=== PATIENT | male | born 1975 | race Caucasian/White ===

== ENCOUNTER 2024-03-25 06:05 | Day surgery (SDC) | payer BC ==
[2024-03-20 16:14] VITALS: BMI 30.8
[2024-03-20 17:18] LABS: #Basophils 0.04 10x3/uL (0.0-0.2); #Eosinphils 0.22 10x3/uL (0.0-0.5); #Monocytes 0.68 10x3/uL (0.0-1.1); #Neutrophils 4.07 10x3/uL (1.5-8.4); %Basophils 0.6 % (0.0-2.0); %Eosinophils 3.1 % (0.0-6.0); %Lymphocytes 29.2 % (18.0-47.0); %Monocytes 9.6 % (0.0-10.0); %Neutrophils 57.4 % (40.0-75.0); Hematocrit 43.1 % (38.8-50.0); Hemoglobin 14.8 g/dL (13.5-17.5); Mean Corpuscular HGB CONC 34.3 g/dL (32.0-36.0); Mean Corpuscular Hemoglobin 31.8 pg (27.0-33.0); Mean Corpuscular Volume 92.5 fL (81.2-95.1); Mean Platelet Volume 10.7 fL (7.4-10.4); Platelet Count 332 10x3/uL (150-450); RBC Distribution Width 13.2 % (11.5-14.5); Red Blood Cell (RBC) Count 4.66 10x6/uL (4.32-5.72); White Blood Cell (WBC) Count 7.1 10x3/uL (3.5-10.5)
[2024-03-20 17:19] LABS: Anion Gap 12 mmol/L (10-20); BUN (Urea Nitrogen) 16 mg/dL (8.9-20.6); Calc. Creatinine Clearance 112 mL/min (70-130); Calcium 9.4 mg/dL (7.8-10.44); Carbon Dioxide 24 mmol/L (22-29); Chloride 105 mmol/L (98-107); Estimated GFR 82; Glucose 94 mg/dL (70-105); Potassium 4.4 mmol/L (3.5-5.1); Sodium 137 mmol/L (136-145)
[2024-03-25] MEDS ORDERED: Heparin 10,000 UNITS/ 10 ML VIAL ONE (06:55)
[2024-03-25] MEDS ORDERED: Lidocaine 1% (PF) 30 ML VIAL ONE (06:55)
[2024-03-25] MEDS ORDERED: Glycopyrrolate 0.2 MG/ML 5 ML SYRINGE ONE (07:14)
[2024-03-25] MEDS ORDERED: Dexamethasone 20 MG/5 ML VIAL ONE (07:14)
[2024-03-25] MEDS ORDERED: Lidocaine 1% PF 5 ML VIAL ONE (07:14)
[2024-03-25] MEDS ORDERED: Ondansetron PF 4 MG/2 ML Vial ONE (07:14)
[2024-03-25] MEDS ORDERED: fentaNYL 50 mcg/mL 1 mL Vial ONE (07:14)
[2024-03-25] MEDS ORDERED: PROPOFOL 0 ML ONE (07:14)
[2024-03-25] MEDS ORDERED: Midazolam HCl 2 mg/2 ml Vial ONE (07:14)
[2024-03-25] MEDS ORDERED: EPINEPHrine 1 MG/10 ML Abboject SYRINGE ONE (07:15)
[2024-03-25] MEDS ORDERED: PHENYLEPHRINE-NS 100 MCG/ML 10 ML SYRINGE ONE ×2 (07:15→08:53)
[2024-03-25] MEDS ORDERED: Phenylephrine 10 MG/ML VIAL ONE (07:15)
[2024-03-25] MEDS ORDERED: Isoproterenol 0.2 MG/1 ML AMP ONE (08:07)
[2024-03-25] MEDS ORDERED: PROPOFOL 40 ML ONE (09:14)
== END 2024-03-25 14:32 | disposition home or self-care (01) ==
LOC: SDC 06:05
PROVIDERS: ATTEND Internal Medicine Cardiovascular Disease
PROC: 02583ZZ Destruction of Conduction Mechanism, Percutaneous Approach (ICD-10-PCS; principal; 2024-03-25)
PROC: 4A023FZ Measurement of Cardiac Rhythm, Percutaneous Approach (ICD-10-PCS; principal; 2024-03-25)
DX: I47.10 Supraventricular tachycardia, unspecified (principal); I10 Essential (primary) hypertension; Z87.891 Personal history of nicotine dependence; Z79.899 Other long term (current) drug therapy
CPT/HCPCS: 80048; 85025; 93005; 93620; 93623; 93653; C1730; C1732; C1760; C1769; C1894; J0171; J1100; J1644; J2001; J2250; J2371; J2405; J2704; J3010